=== PATIENT | female | born 1960 | race Native Hawaiian/Other Pacific Islander ===

== ENCOUNTER 2016-12-02 08:29 | Outpatient (CLI) | payer BC | END 2016-12-02 19:56 | disposition home or self-care (01) | LOC: MAMMO 08:29 | DX: Z12.31 Encounter for screening mammogram for malignant neoplasm of breast (principal) | CPT/HCPCS: G0202-TC ==

== ENCOUNTER 2018-04-20 08:18 | Outpatient (CLI) | payer BC | END 2018-04-20 19:21 | disposition home or self-care (01) | LOC: MAMMO 08:18 | DX: Z12.31 Encounter for screening mammogram for malignant neoplasm of breast (principal) ==

== ENCOUNTER 2019-04-29 10:15 | Outpatient (CLI) | payer OTHER | END 2019-04-29 19:17 | disposition home or self-care (01) | LOC: MAMMO 10:15 | DX: Z12.31 Encounter for screening mammogram for malignant neoplasm of breast (principal) ==

== ENCOUNTER 2020-05-04 08:35 | Outpatient (CLI) | payer OTHER | END 2020-05-04 22:03 | disposition home or self-care (01) | LOC: MAMMO 08:35 | DX: Z12.31 Encounter for screening mammogram for malignant neoplasm of breast (principal); Z13.820 Encounter for screening for osteoporosis ==

== ENCOUNTER 2020-10-29 14:49 | Outpatient (CLI) | payer OTHER | END 2020-10-29 21:14 | disposition home or self-care (01) | LOC: RAD 14:49 | PROVIDERS: ATTEND Internal Medicine | DX: R09.1 Pleurisy (principal) ==

== ENCOUNTER 2022-04-29 09:27 | Outpatient (CLI) | payer OTHER | END 2022-04-29 20:25 | disposition home or self-care (01) | LOC: MAMMO 09:27 | PROVIDERS: ATTEND Obstetrics & Gynecology | DX: Z12.31 Encounter for screening mammogram for malignant neoplasm of breast (principal) ==

== ENCOUNTER 2022-09-26 10:40 | Outpatient (CLI) | payer OTHER | END 2022-09-26 19:39 | disposition home or self-care (01) | LOC: RAD 10:40 | PROVIDERS: ATTEND Internal Medicine | DX: Z78.0 Asymptomatic menopausal state (principal) ==

== ENCOUNTER 2022-12-19 08:06 | Outpatient (CLI) | payer OTHER | END 2022-12-19 18:59 | disposition home or self-care (01) | LOC: US 08:06 | PROVIDERS: ATTEND Internal Medicine Gastroenterology | DX: R10.11 Right upper quadrant pain (principal) ==

== ENCOUNTER 2023-05-16 08:09 | Outpatient (CLI) | payer OTHER | END 2023-05-16 19:11 | disposition home or self-care (01) | LOC: MAMMO 08:09 | PROVIDERS: ATTEND Obstetrics & Gynecology | DX: Z12.31 Encounter for screening mammogram for malignant neoplasm of breast (principal) ==